=== PATIENT | female | born 1955 | race Caucasian/White ===

== ENCOUNTER → 2017-07-22 | Outpatient (CLI) | payer OTHER ==
[~2017-07-22] MED LIST: DOCU250C63 PO; ESOM40CA42 PO; LOR5/325 PO
--- NOTE | 2017-07-22 11:23 | RADIOLOGY IMAGING REPORT ---
FACILITY: [facility] - [place] PATIENT NAME: Gaby Parrish : 1955 MR: [id number] V: [id number] EXAM DATE: ORDERING PHYSICIAN: JOANIE CORDOBA TECHNOLOGIST: Location: [facility] [place] Patient: Gaby Parrish : 1955 Visit/Account:[id number] Date of Sevice: 07/22/2017 Exam type: CHEST PA AND LAT History: Bronchitis, tight chest, cough symptoms x2 weeks, nonsmoker Comparison: October 25, 2015. Findings: Cardiac silhouette is mildly enlarged although relatively unchanged. Mild hyperinflation of the lung s. There is no evidence of focal infiltrates, or overt pulmonary edema. There is very mild blunting of the posterior left costophrenic angle best seen on the lateral view. No evidence of a pneumothor ax or pneumomediastinum. IMPRESSION: 1. Mild cardiomegaly unchanged when compared to the prior study Mild blunting of the left posterior costophrenic angle best seen on the lateral view which could repr esent a small left pleural effusion versus pleural thickening Mild hyperexpansion of the lung rodriguez Report Dictated By: Tatyana Desai MD at 07/22/2017 11:12 AM Report E-Signed By: Tatyana Desai MD at 07/22/2017 11:19 AM WSN:[email or web address]
== END ==
LOC: RAD 10:34
PROVIDERS: ATTEND Family Medicine
DX: I51.7 Cardiomegaly (principal); J98.4 Other disorders of lung
CPT/HCPCS: 71046

== ENCOUNTER → 2018-03-25 | Outpatient (CLI) | payer OTHER ==
--- NOTE | 2018-03-26 10:48 | RADIOLOGY IMAGING REPORT ---
FACILITY: [facility] PATIENT NAME: PRISCA TREVINO : [id number] MR: [id number] V: [id number] EXAM DATE: [id number] ORDERING PHYSICIAN: JOANIE CORDOBA TECHNOLOGIST: Katie Orosco PROCEDURE:BILATERAL DIGITAL SCREENING MAMMOGRAM WITH CAD ASSISTED INTERPRETATION & 3D TOMOSYNTHESIS COMPARISON:Prior mammograms 04/15/17, 04/02/17, 03/07/16, 04/05/15, 04/05/14, 03/31/14. INDICATIONS:SCREENING FINDINGS: Moderately dense fibroglandular tissue is seen throughout the breasts. The parenchymal pattern has remained stable allowing for difference in mammographic technique & patient positioning. There is no evidence of malignant appearing mass, malignant appearing calcifications or other secondary sign of malignancy in either breast. DIAGNOSTIC CATEGORY 1--NEGATIVE. RECOMMENDATIONS: ROUTINE MAMMOGRAM AND CLINICAL EVALUATION. IMPRESSION: BIRADS 1: Negative. No significant abnormality is seen. Dictated by: Tatyana Desai M.D. on 03/25/2018 at 14:46 Transcribed by: MARYLU on 03/25/2018 at 15:00 Approved by: Tatyana Desai M.D. on 03/26/2018 at 10:47 [facility]
== END ==
LOC: MAMO 01:27
PROVIDERS: ATTEND Family Medicine
DX: Z12.31 Encounter for screening mammogram for malignant neoplasm of breast (principal)
CPT/HCPCS: 77063; 77067

== ENCOUNTER → 2018-04-10 | Outpatient (CLI) | payer OTHER | LOC: LAB 12:37 | DX: E03.4 Atrophy of thyroid (acquired) (principal) | CPT/HCPCS: 36415; 84443 ==

== ENCOUNTER → 2018-05-19 | Outpatient (CLI) | payer OTHER ==
--- NOTE | 2018-05-19 16:49 | RADIOLOGY IMAGING REPORT ---
FACILITY: [facility] - [place] PATIENT NAME: Gaby Parrish : 1955 MR: [id number] V: [id number] EXAM DATE: [id number] ORDERING PHYSICIAN: JOANIE CORDOBA TECHNOLOGIST: Location: [facility] [place] Patient: Gaby Parrish : 1955 Visit/Account:[id number] Date of Sevice: 05/19/2018 Exam type: SOFT TISSUE NON-SPECIFIC History: History of benign lump removed in 2009 from right breast now palpable lump in right axilla Comparison: None. Findings: In the right axilla there is a 9 x 9 x 9 mm hyperechoic ovoid nodule likely fatty replaced lymph node . No mass was identified in the right axilla in the location of patient's apparent palpable findings on clinical follow-up recommended IMPRESSION: 1. Probable fatty replaced lymph node in the right axilla No other right axilla mass demonstrated there for clinical follow-up recommended Report Dictated By: Tatyana Desai MD at 05/19/2018 4:43 PM Report E-Signed By: Tatyana Desai MD at 05/19/2018 4:45 PM WSN:[email or web address]
== END ==
LOC: US 15:19
PROVIDERS: ATTEND Family Medicine
DX: R59.0 Localized enlarged lymph nodes (principal)
CPT/HCPCS: 76999

== ENCOUNTER → 2018-12-04 | Outpatient (CLI) | payer OTHER ==
[~2018-12-04] MED LIST changes: +ACYC800T99 PO; +BOSW1POW MC; +EVEP1CAP2 PO; +FISH1CAP15 PO; +GING250C3 PO; +LYSI500T32 PO; +THYR15TA; +[UNRECOGNIZED DRUG - CODE] PO
== END ==
LOC: US 00:34
PROVIDERS: ATTEND Internal Medicine Cardiovascular Disease
DX: R06.02 Shortness of breath (principal)
CPT/HCPCS: 93306